=== PATIENT | male | born 1945 | race Caucasian/White ===

== ENCOUNTER 2016-10-28 15:33 | Emergency (ER) | payer OTHER ==
--- NOTE | 2016-10-28 18:34 | ER ---
ADMIT: 10/28/2016 RM/LOC: ER [facility] MR#: [id number] [address] [address] THIAGO LEE [address] [place] [address] Emergency Room Report SEX: M AGE: 71 : 1945 DATE: 10/28/2016 HISTORY OF PRESENT ILLNESS: The patient is a 71-year-old male with past medical history of hypertension, who came to the ER with chief complaint of feeling dizzy and little off balance while standing since today. The patient states he had similar symptoms three months ago which resolved by self in a few hours. The patient denies any visual changes, ear pain, ear discharge, vertigo, nausea, vomiting, or fall. The patient states the last time he had similar symptom he had ear infection. PHYSICAL EXAMINATION: GENERAL: In the ER, patient were in no pain or distress. VITAL SIGNS: Stable. HEAD AND NECK: Pupils are 3 mm, reactive to light bilaterally, normal extraocular movements. Cranial nerves are grossly normal. Sensory and motor is grossly normal. The patient had no nystagmus. Diamond-Hallpike is negative. There is no bruit under neck. Neck is soft. There is no murmur radiating to the neck. Trachea is midline. CHEST: Clear bilaterally. HEART: Normal S1, S2 without any murmurs or gallops. ABDOMEN: Soft. Motor and sensory and cerebellar tests are grossly normal. I saw the patient and he walked a few steps. Gait is normal. Romberg test is negative. Ears are also normal TM. Orthostatic vitals are negative. CT of the head was negative for any acute changes. EKG did not show any arrhythmia, or signs of ischemia, or ST or T changes, or Q-wave. Electrolyte level and BMP was normal, with sodium of 142, potassium of 3.5, bicarb of 25, glucose of 124, and creatinine 0.8. The patient received IV fluid 1 L. The patient was reassessed, he was in no pain or distress and states that the dizziness is resolved. The patient was reassured and was advised to follow up with the primary doctor. The patient was discharged to home with return precautions. Follow up with the primary doctor as needed. The patient acknowledged he understood the plan and agreed with it and was discharged to home. César Martínez MD/ giancarlo JOB #: [id number] CC: Chavo Alas MD, Attending Physician Oswaldo Ritchie MD, Family Physician
== END 2016-10-28 17:25 | disposition home or self-care (01) ==
LOC: ER 15:33
DX: R42 Dizziness and giddiness (principal); I10 Essential (primary) hypertension; Z79.899 Other long term (current) drug therapy